=== PATIENT | male | born 1975 | race Caucasian/White ===

== ENCOUNTER 2018-05-10 10:00 | Inpatient (IN) | payer MEDICAID ==
[~2018-05-10] VITALS: Ht 167.6 cm; Wt 86.6 kg
[2018-05-10 10:12] VITALS: BP 138/95
[2018-05-10] MEDS ORDERED: NACL 0.9% 500 ML IV ONE (10:41)
[2018-05-10] MEDS ORDERED: KETOROLAC 30 MG/ML VIAL IVP ONE (10:45)
[2018-05-10] MEDS ORDERED: ONDANSETRON 4 MG/2 ML VIAL IVP ONE (10:45)
[2018-05-10 11:09] LABS: BASOPHILS % (AUTO) 0.3 % (0.0-2.0); EOSINOPHILS # (AUTO) 0.1 K/uL (0-0.4); EOSINOPHILS % (AUTO) 0.6 % (0.0-4.0); HEMATOCRIT 49.1 % (36-52); HEMOGLOBIN 16.6 g/dL (12.0-18.0); LYMPHOCYTES # (AUTO) 1.5 K/uL (2.0-11.5); LYMPHOCYTES % (AUTO) 13.5 % (20.5-51.1); MEAN CORPUSCULAR HEMOGLOBIN 29 pg (27-31); MEAN CORPUSCULAR HGB CONC 34 g/dL (33-37); MEAN CORPUSCULAR VOLUME 85.6 fL (80-94); MONOCYTES # (AUTO) 0.6 K/uL (0.8-1.0); MONOCYTES % (AUTO) 5.8 % (1.7-9.3); NEUTROPHILS # (AUTO) 8.6 K/uL (1.8-7.7); NEUTROPHILS % (AUTO) 79.8 % (42.2-75.2); PLATELET COUNT (AUTO) 231 K/uL (140-450); RED BLOOD CELL COUNT(AUTO) 5.73 MIL/uL (4.20-6.10); RED CELL DISTRIBUTION WIDTH 13.8 % (11.6-13.7); WHITE BLOOD COUNT (AUTO) 10.8 K/uL (4.8-10.8)
[2018-05-10 11:31] LABS: ALBUMIN 4.4 g/dL (3.4-5.0); ANION GAP 10.9 (8-16); CARBON DIOXIDE 30.1 mmol/L (21-32); TOTAL BILIRUBIN 2.9 mg/dL (0.0-1.0)
[2018-05-10] MEDS ORDERED: MORPHINE SULFATE 4 MG/ML SYR IVP ONE (12:10)
[2018-05-10] MEDS ORDERED: DOCUSATE SODIUM 100 MG GELCAP PO PRN (12:45)
[2018-05-10] MEDS ORDERED: ACETAMINOPHEN 325 MG TAB PO PRN (12:45)
[2018-05-10] MEDS ORDERED: DEXT 5% /NACL 0.9% 1,000 ML IV ONE (12:55)
[2018-05-10] MEDS ORDERED: MORPHINE SULFATE 4 MG/ML SYR IVP PRN ×2 (13:40→20:50)
[2018-05-10 13:45] VITALS: BP 143/86
[2018-05-10] MEDS ORDERED: DEXTROSE 50% 50 ML SYR IVP PRN (14:05)
[2018-05-10] MEDS ORDERED: INSULIN LISPRO SLIDING SCALE 100 UNITS/ML VIAL SUBQ PRN (14:05)
[2018-05-10 14:07] LABS: AMYLASE 2464 U/L (25-115); CHOL/HDL RATIO 6.2 (1-4.5); HDL CHOLESTEROL 43 mg/dL (40-60); LDL (CALC) 194 mg/dL (60-100); MAGNESIUM 2.3 mg/dL (1.8-2.4); PHOSPHORUS 3.3 mg/dL (2.5-4.9); TRIGLYCERIDES 140 mg/dL (30-150)
[2018-05-10 14:22] LABS: LACTATE DEHYDROGENASE 330 U/L (85-227)
[2018-05-10 14:44] LABS: THYROID STIMULATING HORMONE 1.12 uIU/mL (0.34-3.74)
[2018-05-10] MEDS ORDERED: ONDANSETRON 4 MG/2 ML VIAL IM/IVP PRN (15:00)
[2018-05-10 16:00] VITALS: BP 120/84
[2018-05-10] MEDS ORDERED: NACL 0.9% 1,000 ML IV SCH (16:00)
[2018-05-10] MEDS ORDERED: GEMFIBROZIL 600 MG TAB PO SCH (16:30)
[2018-05-10] MEDS ORDERED: BLOOD GLUCOSE MONITORING 1 DEV DEV FS SCH (16:30)
[2018-05-10] MEDS ORDERED: LACTULOSE 20 GM/30 ML UDC PO SCH (16:45)
[2018-05-10] MEDS ORDERED: KETOROLAC 30 MG/ML VIAL IVP PRN (17:00)
[2018-05-10] MEDS: LEVOFLOXACIN 750 MG/D5W PREMIX 150 ML IV SCH (18:11)
[2018-05-10] MEDS: NACL 0.9% 1,000 ML IV SCH (18:34)
[2018-05-10] MEDS ORDERED: KETOROLAC 15 MG/ML VIAL IM PRN (20:40)
[2018-05-11] VITALS: BP 133/88
[2018-05-11] MEDS ORDERED: BLOOD GLUCOSE MONITORING 1 DEV DEV FS SCH
[2018-05-11] MEDS: NACL 0.9% 1,000 ML IV SCH ×2 (02:18→06:39)
[2018-05-11] MEDS: BLOOD GLUCOSE MONITORING 1 DEV DEV FS SCH ×4 (06:04→21:30)
[2018-05-11 06:16] LABS: T4 (THYROXINE) 6.7 ug/dL (4.5-12.0)
[2018-05-11 07:20] LABS: BASOPHILS # (AUTO) 0.2 K/uL (0.00-0.22); BASOPHILS % (AUTO) 1.7 % (0.0-2.0); EOSINOPHILS # (AUTO) 0.1 K/uL (0-0.4); EOSINOPHILS % (AUTO) 0.7 % (0.0-4.0); HEMATOCRIT 43.4 % (36-52); HEMOGLOBIN 14.5 g/dL (12.0-18.0); LYMPHOCYTES # (AUTO) 1.3 K/uL (2.0-11.5); LYMPHOCYTES % (AUTO) 12.6 % (20.5-51.1); MEAN CORPUSCULAR HEMOGLOBIN 29 pg (27-31); MEAN CORPUSCULAR HGB CONC 34 g/dL (33-37); MEAN CORPUSCULAR VOLUME 85.8 fL (80-94); MONOCYTES # (AUTO) 0.5 K/uL (0.8-1.0); MONOCYTES % (AUTO) 4.9 % (1.7-9.3); NEUTROPHILS # (AUTO) 7.9 K/uL (1.8-7.7); NEUTROPHILS % (AUTO) 80.1 % (42.2-75.2); PLATELET COUNT (AUTO) 209 K/uL (140-450); RED BLOOD CELL COUNT(AUTO) 5.06 MIL/uL (4.20-6.10); RED CELL DISTRIBUTION WIDTH 13.8 % (11.6-13.7); WHITE BLOOD COUNT (AUTO) 9.9 K/uL (4.8-10.8)
[2018-05-11 07:42] LABS: ANION GAP 13.5 (8-16); CREATININE 0.8 mg/dL (0.7-1.3); POTASSIUM 3.5 mmol/L (3.5-5.1)
[2018-05-11 07:52] LABS: MAGNESIUM 2.1 mg/dL (1.8-2.4); PHOSPHORUS 3.2 mg/dL (2.5-4.9)
[2018-05-11 07:53] LABS: CHOL/HDL RATIO 3.9 (1-4.5)
[2018-05-11 08:00] VITALS: BP 127/81
[2018-05-11 08:28] LABS: HEPATITIS A ANTIBODY IGM Negative (Negative); HEPATITIS B CORE AB TOTAL Negative (Negative); HEPATITIS B SURFACE ANTIBODY Non Reactive (.); HEPATITIS B SURFACE ANTIGEN Negative (Negative)
[2018-05-11] MEDS: LISINOPRIL 5 MG TAB PO SCH (08:38)
[2018-05-11] MEDS: DEXT 5% /NACL 0.9% 1,000 ML IV SCH ×3 (08:38→22:11)
[2018-05-11] MEDS ORDERED: HYDROCHLOROTHIAZIDE 25 MG TAB PO SCH (09:00)
[2018-05-11 09:17] LABS: APPEARANCE,URINE CLEAR (CLEAR); BILIRUBIN,URINE NEGATIVE (NEGATIVE); BLOOD, URINE NEGATIVE (NEGATIVE); COLOR,URINE YELLOW (YELLOW); LEUKOCYTE ESTERASE ,URINE NEGATIVE (NEGATIVE); NITRITE, URINE NEGATIVE (NEGATIVE); PH,URINE 5.5 (5.0-9.0); UGLUCOSE NEGATIVE (NEGATIVE)
[2018-05-11 09:24] LABS: BARBITURATE, URINE NEG. ng/ml (NEG <=200); BENZODIAZEPINE, URINE NEG. ng/mL (NEG <=200); CANNABINOID, URINE NEG. ng/mL (NEG <=50); COCAINE, URINE NEG. ng/mL (NEG <=300); OPIATE, URINE NEG. ng/mL (NEG <=2000); PHENCYCLIDINE SCREEN,URINE NEG. ng/mL (NEG <=25)
[2018-05-11] MEDS ORDERED: LACTOBACILLUS RHAMNOSUS GG 1 EACH CAP PO SCH (14:00)
[2018-05-11] MEDS ORDERED: LACTULOSE 20 GM/30 ML UDC PO SCH (14:00)
[2018-05-11 15:33] LABS: ALBUMIN 3.3 g/dL (3.4-5.0); BILIRUBIN,DIRECT 0.2 mg/dL (0.0-0.3); TOTAL BILIRUBIN 0.7 mg/dL (0.0-1.0)
[2018-05-11 16:00] VITALS: BP 134/78
[2018-05-11] MEDS: GEMFIBROZIL 600 MG TAB PO SCH (16:33)
[2018-05-11] MEDS: LEVOFLOXACIN 750 MG/D5W PREMIX 150 ML IV SCH (16:33)
[2018-05-11] MEDS: HYDROcodone/APAP 7.5/325 MG 1 TAB PO PRN (17:34)
[2018-05-12] VITALS: BP 122/80
[2018-05-12] MEDS: BLOOD GLUCOSE MONITORING 1 DEV DEV FS SCH ×2 (02:34→05:54)
[2018-05-12] MEDS: GEMFIBROZIL 600 MG TAB PO SCH ×2 (06:38→17:53)
[2018-05-12 06:47] LABS: BASOPHILS % (AUTO) 0.4 % (0.0-2.0); EOSINOPHILS # (AUTO) 0.1 K/uL (0-0.4); EOSINOPHILS % (AUTO) 1.4 % (0.0-4.0); HEMATOCRIT 37.4 % (36-52); HEMOGLOBIN 12.7 g/dL (12.0-18.0); LYMPHOCYTES # (AUTO) 2.2 K/uL (2.0-11.5); LYMPHOCYTES % (AUTO) 24.2 % (20.5-51.1); MEAN CORPUSCULAR HEMOGLOBIN 29 pg (27-31); MEAN CORPUSCULAR HGB CONC 34 g/dL (33-37); MEAN CORPUSCULAR VOLUME 84.8 fL (80-94); MONOCYTES # (AUTO) 0.8 K/uL (0.8-1.0); MONOCYTES % (AUTO) 8.7 % (1.7-9.3); NEUTROPHILS # (AUTO) 6.1 K/uL (1.8-7.7); NEUTROPHILS % (AUTO) 65.3 % (42.2-75.2); PLATELET COUNT (AUTO) 188 K/uL (140-450); RED BLOOD CELL COUNT(AUTO) 4.41 MIL/uL (4.20-6.10); RED CELL DISTRIBUTION WIDTH 13.8 % (11.6-13.7); WHITE BLOOD COUNT (AUTO) 9.3 K/uL (4.8-10.8)
[2018-05-12 06:56] LABS: PROTHROMBIN TIME 10.6 secs (10.8-13.4)
[2018-05-12 06:58] LABS: MAGNESIUM 1.9 mg/dL (1.8-2.4); PHOSPHORUS 2.9 mg/dL (2.5-4.9)
[2018-05-12 07:07] LABS: ALBUMIN 3.1 g/dL (3.4-5.0); ANION GAP 13.5 (8-16); CARBON DIOXIDE 24.9 mmol/L (21-32); CREATININE 0.8 mg/dL (0.7-1.3); POTASSIUM 3.4 mmol/L (3.5-5.1); TOTAL BILIRUBIN 0.6 mg/dL (0.0-1.0)
[2018-05-12 08:00] VITALS: BP 111/69
[2018-05-12] MEDS: DEXT 5% /NACL 0.9% 1,000 ML IV SCH (08:11)
[2018-05-12] MEDS: LACTOBACILLUS RHAMNOSUS GG 1 EACH CAP PO SCH (08:53)
[2018-05-12] MEDS: LISINOPRIL 5 MG TAB PO SCH (08:53)
[2018-05-12] MEDS ORDERED: BLOOD GLUCOSE MONITORING 1 DEV DEV FS SCH (09:00)
[2018-05-12] MEDS ORDERED: LACTULOSE 20 GM/30 ML UDC PO SCH (10:35)
[2018-05-12] MEDS ORDERED: POTASSIUM CHLORIDE 20% 40 MEQ/15 ML UDC PO SCH (10:35)
[2018-05-12] MEDS ORDERED: DEXAMETHASONE 10 MG/ML VIAL ONE (14:05)
[2018-05-12] MEDS ORDERED: SUCCINYLCHOLINE CHLORIDE 200 MG/10 ML VIAL IVP ONE (14:05)
[2018-05-12] MEDS ORDERED: PROPOFOL 200 MG/20 ML VIAL IV ONE (14:05)
[2018-05-12] MEDS ORDERED: DESFLURANE 240 ML BTL INH ONE (14:05)
[2018-05-12] MEDS ORDERED: GLYCOPYRROLATE 0.2 MG/ML VIAL ONE (14:05)
[2018-05-12] MEDS ORDERED: ROCURONIUM 50 MG/5 ML VIAL IV ONE (14:05)
[2018-05-12] MEDS ORDERED: PHENYLEPHRINE 10 MG/ML VIAL ONE (14:05)
[2018-05-12] MEDS ORDERED: fentaNYL 0.05 MG/ML VIAL ONE (14:09)
[2018-05-12] MEDS ORDERED: HYDROmorphone PFS 2 MG/ML SYR ONE ×2 (14:10→17:11)
[2018-05-12] MEDS ORDERED: BUPIVACAINE-MPF/EPI 0.25% 30 ML VIAL INJ ONE (14:11)
[2018-05-12] MEDS ORDERED: ONDANSETRON 4 MG/2 ML VIAL IVP PRN (14:55)
[2018-05-12] MEDS ORDERED: HYDROmorphone 1 MG/ML AMP IVP PRN ×2 (14:55→17:05)
[2018-05-12] MEDS ORDERED: MORPHINE SULFATE 4 MG/ML SYR IV PRN (17:05)
[2018-05-12] MEDS ORDERED: ONDANSETRON 4 MG/2 ML VIAL ONE (17:14)
[2018-05-12 17:30] VITALS: BP 130/79
[2018-05-12] MEDS: LEVOFLOXACIN 750 MG/D5W PREMIX 150 ML IV SCH (17:53)
[2018-05-12] MEDS: NACL 0.9% 1,000 ML IV SCH (18:18)
[2018-05-12] MEDS ORDERED: KETOROLAC 15 MG/ML VIAL IM/IVP PRN (18:35)
[2018-05-12] MEDS: HYDROcodone/APAP 7.5/325 MG 1 TAB PO PRN (20:03)
[2018-05-12 23:53] VITALS: BP 131/81
[2018-05-13] MEDS: HYDROcodone/APAP 7.5/325 MG 1 TAB PO PRN ×3 (01:09→13:13)
[2018-05-13] MEDS: NACL 0.9% 1,000 ML IV SCH (05:02)
[2018-05-13 06:29] LABS: BASOPHILS % (AUTO) 0.4 % (0.0-2.0); EOSINOPHILS # (AUTO) 0.1 K/uL (0-0.4); EOSINOPHILS % (AUTO) 1.1 % (0.0-4.0); HEMATOCRIT 37.1 % (36-52); HEMOGLOBIN 12.6 g/dL (12.0-18.0); LYMPHOCYTES # (AUTO) 2.6 K/uL (2.0-11.5); LYMPHOCYTES % (AUTO) 24.2 % (20.5-51.1); MEAN CORPUSCULAR HEMOGLOBIN 29 pg (27-31); MEAN CORPUSCULAR HGB CONC 34 g/dL (33-37); MEAN CORPUSCULAR VOLUME 85.8 fL (80-94); MONOCYTES # (AUTO) 0.8 K/uL (0.8-1.0); MONOCYTES % (AUTO) 7.4 % (1.7-9.3); NEUTROPHILS # (AUTO) 7.1 K/uL (1.8-7.7); NEUTROPHILS % (AUTO) 66.9 % (42.2-75.2); PLATELET COUNT (AUTO) 196 K/uL (140-450); RED BLOOD CELL COUNT(AUTO) 4.32 MIL/uL (4.20-6.10); WHITE BLOOD COUNT (AUTO) 10.6 K/uL (4.8-10.8)
[2018-05-13] MEDS: GEMFIBROZIL 600 MG TAB PO SCH (06:34)
[2018-05-13 07:18] LABS: CARBON DIOXIDE 25.8 mmol/L (21-32); CREATININE 0.8 mg/dL (0.7-1.3); MAGNESIUM 1.8 mg/dL (1.8-2.4); PHOSPHORUS 3.8 mg/dL (2.5-4.9); POTASSIUM 3.8 mmol/L (3.5-5.1); TOTAL BILIRUBIN 0.4 mg/dL (0.0-1.0)
[2018-05-13 08:00] VITALS: BP 139/91
[2018-05-13] MEDS ORDERED: ENOXAPARIN 40 MG/0.4 ML SYR SUBQ SCH (09:00)
[2018-05-13] MEDS: LACTOBACILLUS RHAMNOSUS GG 1 EACH CAP PO SCH (09:20)
[2018-05-13] MEDS: LISINOPRIL 5 MG TAB PO SCH (09:21)
[2018-05-13] MEDS ORDERED: NACL 0.9% 1,000 ML IV SCH (10:40)
[2018-05-13] MEDS ORDERED: GEMF600T9 PO (11:33)
[2018-05-13] MEDS ORDERED: LISI-424 PO (11:33)
[2018-05-13] MEDS ORDERED: ACET-9529 PO (11:33)
[2018-05-13] MEDS ORDERED: CIPR500T4 PO (11:33)
== END 2018-05-13 14:20 | disposition home or self-care (01) | DRG 263 ==
LOC: MED 10:00 → MTU 12:45
PROVIDERS: ADMIT General Practice; ATTEND General Practice
PROC: 0WQF4ZZ Repair Abdominal Wall, Percutaneous Endoscopic Approach (ICD-10-PCS; 2018-05-12)
PROC: BF131ZZ Fluoroscopy of Gallbladder and Bile Ducts using Low Osmolar Contrast (ICD-10-PCS; 2018-05-12)
PROC: 0FT44ZZ Resection of Gallbladder, Percutaneous Endoscopic Approach (ICD-10-PCS; principal; 2018-05-12 15:00)
DX: K85.10 Biliary acute pancreatitis without necrosis or infection (principal); E44.0 Moderate protein-calorie malnutrition; E72.20 Disorder of urea cycle metabolism, unspecified; K80.12 Calculus of gallbladder with acute and chronic cholecystitis without obstruction; E83.52 Hypercalcemia; M48.04 Spinal stenosis, thoracic region; K76.0 Fatty (change of) liver, not elsewhere classified; E78.00 Pure hypercholesterolemia, unspecified; I10 Essential (primary) hypertension; K42.9 Umbilical hernia without obstruction or gangrene; E87.6 Hypokalemia; F17.210 Nicotine dependence, cigarettes, uncomplicated; E78.5 Hyperlipidemia, unspecified; E80.6 Other disorders of bilirubin metabolism; E86.0 Dehydration; E78.1 Pure hyperglyceridemia; E66.9 Obesity, unspecified; Z68.30 Body mass index [BMI] 30.0-30.9, adult
CPT/HCPCS: 36415; 71045; 74300; 76705; 80048; 80053; 80076; 80305; 81003; 82140; 82150; 82374; 82550; 82948; 83036; 83605; 83615; 83690; 83735; 83880; 84100; 84436; 84443; 84479; 85025; 85610; 85730; 86704; 86706; 86708; 86709; 86803; 86886; 86900; 86901; 87081; 87340; 93005; 96361; 96374; 96375; 99285; C1887; G0482; J0330; J1100; J1170; J1650; J1815; J1885; J1956; J2270; J2370; J2405; J2704; J3010; J3490; J7030; J7042; Q0092

== ENCOUNTER 2019-05-03 12:00 | Emergency (ER) | payer SELFPAY ==
[~2019-05-03] VITALS: Ht 170.2 cm; Wt 81.6 kg
[~2019-05-03 12:00] MED LIST: ACET-9529 PO; CIPR500T4 PO; GEMF-65 PO; LISI-424 PO
[2019-05-03 12:05] VITALS: BP 128/73
--- NOTE | 2019-05-03 12:05 | NUR ---
PT AMBULATED TO ER BED 04
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
[2019-05-03] MEDS ORDERED: KETOROLAC 60 MG/2 ML VIAL IM ONE (12:15)
--- NOTE | 2019-05-03 12:35 | NUR ---
PT WENT TO X-RAY WITH TECH VIA WHEELCHAIR.
--- NOTE | 2019-05-03 12:43 | NUR ---
PT RETURNED FROM RADIOLOGY
[2019-05-03 13:19] VITALS: BP 128/73
--- NOTE | 2019-05-03 13:20 | NUR ---
Patient discharged with v/s stable. Written and verbal after care instructions given and explained. Patient alert, oriented and verbalized understanding of instructions. Ambulatory with steady gait. All questions addressed prior to discharge. ID band removed. Patient advised to follow up with PMD. Rx of NORCO and MOTRIN given. Patient educated on indication of medication including possible reaction and side effects. Opportunity to ask questions provided and answered.
== END 2019-05-03 13:20 | disposition home or self-care (01) ==
LOC: MED 12:00
DX: S20.20XA Contusion of thorax, unspecified, initial encounter (principal); I10 Essential (primary) hypertension; Y93.89 Activity, other specified; Y92.89 Other specified places as the place of occurrence of the external cause; Y99.8 Other external cause status; Z79.899 Other long term (current) drug therapy; Z90.49 Acquired absence of other specified parts of digestive tract; Z98.890 Other specified postprocedural states
CPT/HCPCS: 71101; 96372; 99283; J1885